=== PATIENT | female | born 1990 | race Caucasian/White ===

== ENCOUNTER 2023-09-25 09:25 | Inpatient (IN) | payer OTHER ==
[~2023-09-25] VITALS: Ht 165.1 cm; Wt 67.1 kg
[2023-09-25] MEDS ORDERED: MAGNESIUM SULFATE IN WATER 500 ML IV SCH (10:15)
[2023-09-25] MEDS ORDERED: FAMOTIDINE/PF 20 MG/2 ML VIAL IV SCH (10:30)
[2023-09-25] MEDS ORDERED: RINGERS SOLUTION,LACTATED 1,000 ML IV SCH (10:30)
[2023-09-25] MEDS ORDERED: DOCUSATE CALCIUM 240 MG CAPSULE PO SCH (10:30)
[2023-09-25 10:59] LABS: HEMATOCRIT 33.8 % (36.0-45.00); HEMOGLOBIN 11.7 g/dL (12.0-15.00); MEAN CELL VOLUME 93.3 fL (80.00-100.00); MEAN CORPUSCULAR HEMOGLOBIN 32.4 pg (27.00-32.0); MEAN CORPUSCULAR HGB CONC 34.7 g/dl (32.0-36.0); PLATELET COUNT 200 K/uL (150-450); RED BLOOD COUNT 3.63 M/uL (4.00-6.00); RED CELL DISTRIBUTION WIDTH 13.6 % (11.5-14.5)
[2023-09-25 11:01] LABS: PH,URINE 7.5 (5.0-8.0); URINE APPEARANCE Clear; URINE BACTERIA 1521.6 uL (0.0-1933); URINE BILIRRUBIN Negative (NEGATIVE); URINE BLOOD Negative; URINE COLOR Yellow; URINE EPITHELIAL CELLS 27.6 uL (0.0-38.8); URINE GLUCOSE Negative (NEGATIVE); URINE LEUKOCYTE Small; URINE NITRATE Negative; URINE PROTEIN Negative (NEGATIVE); URINE UROBILINOGEN 0.2 E.U./dl; URINE WBC 15.7 uL (0.0-23.2)
[2023-09-25] MEDS ORDERED: PRENATAL TABLE1 EAC1 PO (11:22)
[2023-09-25 11:31] LABS: URINE RBC 1.1 uL (0.0-20.8)
[2023-09-25 11:48] LABS: ALBUMIN 3.1 gm/dL (3.4-5.0); BILIRUBIN TOTAL 0.23 mg/dL (0.3-1.2); CALCIUM 8.6 mg/dL (8.5-10.1); CREATININE SERUM 0.55 mg/dL (0.55-1.02); GFR 128.09; GLOBULINA 3.3 G/DL (2.4-3.5); POTASSIUM 3.74 mEq/L (3.5-5.1); TOTAL PROTEIN 6.4 gm/dL (6.4-8.2)
[2023-09-25] MEDS ORDERED: MORPHINE SULFATE 4 MG/ML CARTRIDGE IV PRN (12:00)
[2023-09-26] MEDS ORDERED: ACETAMINOPHEN 500 MG GEL..CAP PO ONE (01:32)
[2023-09-26] MEDS ORDERED: ONDANSETRON HCL 2 MG/ML VIAL ONE (01:32)
[2023-09-26] MEDS ORDERED: ONDANSETRON HCL 2 MG/ML VIAL IV ONE (02:15)
[2023-09-26] MEDS ORDERED: ACETAMINOPHEN 500 MG GEL..CAP PO PRN (02:15)
[2023-09-26] MEDS ORDERED: NIFEDIPINE 30 MG TAB.SA.OSM PO SCH (09:00)
[2023-09-26] MEDS ORDERED: hydrOXYzine PAMOATE 50 MG CAPSULE PO ONE (15:30)
[2023-09-26] MEDS ORDERED: METROnidazole 70 GM GEL.W.APPL VAG SCH (21:00)
[2023-09-27 20:07] LABS: HEMATOCRIT 33.3 % (36.0-45.00); HEMOGLOBIN 11.5 g/dL (12.0-15.00); MEAN CELL VOLUME 91.8 fL (80.00-100.00); MEAN CORPUSCULAR HEMOGLOBIN 31.7 pg (27.00-32.0); MEAN CORPUSCULAR HGB CONC 34.6 g/dl (32.0-36.0); PLATELET COUNT 191 K/uL (150-450); RED BLOOD COUNT 3.62 M/uL (4.00-6.00); RED CELL DISTRIBUTION WIDTH 13.9 % (11.5-14.5)
[2023-09-27 20:35] LABS: ALBUMIN 2.9 gm/dL (3.4-5.0); BILIRUBIN TOTAL 0.35 mg/dL (0.3-1.2); CALCIUM 8.3 mg/dL (8.5-10.1); CREATININE SERUM 0.45 mg/dL (0.55-1.02); GFR 161.47; GLOBULINA 3.4 G/DL (2.4-3.5); POTASSIUM 3.71 mEq/L (3.5-5.1); TOTAL PROTEIN 6.3 gm/dL (6.4-8.2)
== END 2023-09-28 15:58 | disposition home or self-care (01) | DRG 833 ==
LOC: LDR 09:25 → OB/GYN 09-26 08:47
PROVIDERS: ADMIT Obstetrics & Gynecology; ATTEND Obstetrics & Gynecology
PROC: 4A1HXCZ Monitoring of Products of Conception, Cardiac Rate, External Approach (ICD-10-PCS; principal; 2023-09-25)
PROC: BU4CZZZ Ultrasonography of Uterus and Ovaries (ICD-10-PCS; 2023-09-25)
PROC: BW40ZZZ Ultrasonography of Abdomen (ICD-10-PCS; 2023-09-27)
PROC: BY4CZZZ Ultrasonography of Second Trimester, Single Fetus (ICD-10-PCS; 2023-09-27)
PROC: BU4CZZZ Ultrasonography of Uterus and Ovaries (ICD-10-PCS; 2023-09-27)
DX: O26.892 Other specified pregnancy related conditions, second trimester (principal); R10.2 Pelvic and perineal pain; Z3A.19 19 weeks gestation of pregnancy; Z20.822 Contact with and (suspected) exposure to COVID-19

== ENCOUNTER 2024-02-01 06:11 | Inpatient (IN) | payer OTHER ==
[~2024-02-01] VITALS: Ht 165.1 cm; Wt 77.1 kg
[~2024-02-01 06:11] MED LIST: PRENATAL TABLE1 EAC1 PO
[2024-02-01] MEDS ORDERED: RINGERS SOLUTION,LACTATED 1,000 ML IV SCH (06:30)
[2024-02-01 08:13] LABS: INR < 0.93; PARTIAL THROMBOPLASTIN TIME 31.1 SECONDS (22.0-34.0); PROTHROMBIN TIME 9.4 SECONDS (9.0-11.5)
[2024-02-01] MEDS ORDERED: CHLORHEXIDINE GLUCONATE 120 ML BOTTLE TOP ONE (08:13)
[2024-02-01] MEDS ORDERED: ERYTHROMYCIN BASE 1 GM TUBE OP ONE (08:13)
[2024-02-01] MEDS ORDERED: OXYTOCIN 20 UNITS/1000ML RL PIGGYBAG IV ONE ×2 (08:13→10:49)
[2024-02-01] MEDS ORDERED: LIDOCAINE HCL 1% 10ML VIAL ONE ×2 (08:14→08:33)
[2024-02-01] MEDS ORDERED: OxyCODONE HCL/APAP UD (PERCOCET) PO PRN (09:45)
[2024-02-01] MEDS ORDERED: OXYTOCIN 1,000 ML IV SCH (09:45)
[2024-02-01] MEDS ORDERED: CHLORHEXIDINE GLUCONATE 120 ML BOTTLE TP SCH (09:45)
[2024-02-01] MEDS ORDERED: ERYTHROMYCIN BASE 1 GM TUBE OP SCH (09:45)
[2024-02-01 10:45] LABS: ABG PH 7.297 (7.35-7.45); ABG pCO2 34.2 mmHg (35-45); BASE EXCESS -9.1 mmol/l; BICARBONATE 16.3 mmol/l (23-25); Tco2 17.4 mmol/l
[2024-02-01 10:55] LABS: ABG PO2 33.6 mmHg (80-100); o2 21 %
[2024-02-01] MEDS ORDERED: LIDOCAINE HCL 1% 10ML VIAL IJ ONE (11:30)
[2024-02-01] MEDS ORDERED: KETOROLAC TROMETHAMINE 10 MG TABLET PO SCH (12:00)
[2024-02-01] MEDS ORDERED: DOCUSATE SODIUM 100MG CAP PO SCH (17:00)
== END 2024-02-03 13:09 | disposition home or self-care (01) | DRG 807 ==
LOC: LDR 06:11 → OB/GYN 11:40
PROVIDERS: Obstetrics & Gynecology Maternal & Fetal Medicine; ADMIT Obstetrics & Gynecology; ATTEND Obstetrics & Gynecology
PROC: 10E0XZZ Delivery of Products of Conception, External Approach (ICD-10-PCS; principal; 2024-02-01)
PROC: 0W8NXZZ Division of Female Perineum, External Approach (ICD-10-PCS; 2024-02-01)
PROC: 4A1HXCZ Monitoring of Products of Conception, Cardiac Rate, External Approach (ICD-10-PCS; 2024-02-01)
DX: O70.1 Second degree perineal laceration during delivery (principal); Z37.0 Single live birth; Z3A.37 37 weeks gestation of pregnancy; Z20.822 Contact with and (suspected) exposure to COVID-19